=== PATIENT | female | born 1985 | race Caucasian/White ===

== ENCOUNTER → 2016-09-26 | Outpatient (CLI) | payer OTHER ==
[~2016-09-26] MED LIST: LEVOTAB9 PO
[2016-09-26 15:29] LABS: INTERNATIONAL NORMALIZED RATIO 0.9 RATIO
[2016-09-26 15:43] LABS: BICARBONATE 24.9 MEQ/L (21.0-32.0); POTASSIUM 3.9 MEQ/L (3.5-5.1)
[2016-09-26 16:28] LABS: BLOOD, URINE TRACE (NEG); COMMENT (UR) CULT NOT INDICATED; CULTURE IF INDICATED CULT NOT INDICATED; GLUCOSE,URINE NEG (NEG); KETONE, URINE NEG (NEG); MUCUS URINE FEW /lpf (OCC); NITRITE,URINE NEG (NEG); PH, URINE 5.5 (5.0-8.5); SQUAMOUS EPITHELIAL CELL URINE <1 /hpf (0-5); URINE COLOR YELLOW (YELLW/STRAW)
== END ==
LOC: CPRE 14:32
PROVIDERS: ATTEND Orthopaedic Surgery
DX: Z01.812 Encounter for preprocedural laboratory examination (principal); G56.01 Carpal tunnel syndrome, right upper limb
CPT/HCPCS: 36415; 80048; 81001; 85610

== ENCOUNTER → 2016-10-04 | Day surgery (SDC) | payer OTHER ==
--- NOTE | 2016-09-30 11:57 | MH ---
cc: BIANKA GRIFFIN DATE OF ADMISSION: 10/04/2016 ADMITTING DIAGNOSIS Right carpal tunnel syndrome, pain of the right hand. HISTORY OF PRESENT ILLNESS The patient is a 31-year-old white female who has experienced almost a five-month history of bilateral hand pain. Her history actually had extended back at least one year when she began to experience the onset of a numb and tingling sensation involving the index and long finger of both hands. The patient conformed to conservative management at that time, not seeking any evaluation, but gradually experienced what she thought to be a slight trend in improvement and she continued to utilize both upper extremities for her daily routine. In the more recent past her symptoms began to recur, becoming quite pronounced during the night interval which interfered with her sleep and using her hands as she initiated her days activities. She had undergone previous medical evaluation with her primary care physician, Dr. Vlad Mcclure, who ordered x-ray studies, the results of which reported mild degenerative changes about the IP joints. The patient was later encouraged to proceed with orthopedic evaluation for which he was originally evaluated by the undersigned physician in May of this past year. At that time her clinical findings were thought to be consistent with a tenosynovitis of both hands with the possibility of carpal tunnel syndrome being noted. The patient was referred for neurological evaluation with EMG study, the results of which identified moderately severe median neuropathy of the right wrist compatible with carpal tunnel syndrome. Findings of the left upper extremity showed moderately severe median neuropathy at the wrist level as well. The patient remained symptomatic with discomfort in both hands being somewhat more pronounced on the right side extending into the night interval with an associated numb sensation. She returned to the office in follow-up disposition expressing her desire to proceed with a more definitive course of treatment. The involvement of carpal tunnel release was outlined in detail for which the patient indicated her full understanding and expressed her desire to proceed accordingly. In compliance with her wishes she is currently being admitted in order that carpal tunnel release of her right hand be accomplished. She is right-hand dominant. PAST MEDICAL HISTORY No previous hospitalizations or surgeries. The patient denies active medical illnesses. MEDICATIONS Her current medications include Levonor, a control pill taken on a regular basis. ALLERGIES SHE EXPRESSES A DRUG ALLERGY TO SUSIE BACK AND BODY MEDICATION WHICH DID RESULT IN HIVES AND SWELLING SYMPTOMS. SHE REPORTS THAT SHE HAS BEEN ABLE TO TOLERATE ASPIRIN IN LOW DOSES WITHOUT ASSOCIATED DIFFICULTY. REVIEW OF SYSTEMS She does wear glasses. Denies headache, seizure or syncope. Occasional sinus congestion as related to environmental irritants. No epistaxis. Auditory acuity intact. No tinnitus. No bleeding gums or dysphagia. Denies cough, shortness of breath, upper respiratory infection, pneumonia or tuberculosis. No angina or heart disease. Her appetite is good. Bowel movements are regular. No hepatitis, gallbladder disease, ulcers or hemorrhoids. No urinary tract infection. No kidney stones. No history of fracture. No psychiatric illness. Her remaining review of systems is unremarkable and noncontributory. FAMILY HISTORY The patient is single. Father 61 years of age. Mother 63 years of age. The father is status post a pacemaker and defibrillator insertion. The mother has undergone previous knee replacement. There is a family history of hypertension, diabetes, heart disease, thyroid disorder and melanoma. SOCIAL HISTORY The patient is currently working on a master's degree in organizational development. 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 She denies active use of tobacco and ethanol. PHYSICAL EXAMINATION Height 5 feet 3-1/2 inches, weight 307 pounds. GENERAL: An alert, oriented and responsive 31-year-old white female who sits quietly upon the examination table with no obvious distress. HEAD, EYES, EARS, NOSE, AND THROAT: Pupils are equal, round and reactive to light. Extraocular movements full. Sclera clear. External nares clear. External auditory canals clear. Dental intact. Mucous membranes pink and moist. Pharynx clear. NECK: Supple. Active range of motion without significant pain. Carotid pulse palpable bilaterally. Trachea midline. Thyroid without enlargement. LUNGS: Clear to auscultation and percussion. BACK: No CVA tenderness. No discomfort throughout the dorsolumbar spine. HEART: Regular rhythm. No murmur or gallop. ABDOMEN: Soft, nontender. Bowel sounds present. PELVIC: Deferred. EXTREMITIES: Right Hand: No swelling or discoloration or obvious deformity. Intrinsic function is grossly intact with flexion/extension maneuvering. Extract Mixer strength intact. Sensory intact. No appreciable thenar or hypothenar atrophy. Tinel's sign negative. Durkan's sign negative. Phalen's test minimally positive. Radial pulse palpable. Satisfactory mobility of the wrist joint with no associated pain. NEUROLOGIC: Cranial nerves II-XII grossly intact. IMPRESSION 1. Right carpal tunnel syndrome. 2. Pain right hand. PLAN Right carpal tunnel release. The nature of the planned surgical procedure, the potential complications and risks associated, the expectations of surgery and the consent form were thoroughly reviewed with the patient prior to her admission to the hospital. Jessie has indicated her full understanding regarding all of the above and given consent to proceed with treatment as outlined. Bianka Griffin MD NBS/BT /11:22 AM /11:37 AM
[~2016-10-04] VITALS: Ht 160 cm; Wt 139.3 kg
[~2016-10-04] MED LIST changes: +*RESP: ALBUTEROL 2.5 MG/3 ML NEB (PRN) PERIprocedural Use ONLY NEB ONE; +ACETAMINOPHEN 1000 MG/100 ML VIAL IV ONE; +ACETAMINOPHEN/HYDROcodone 325 MG/5 MG TAB ONE; +ACETAMINOPHEN/HYDROcodone 325 MG/5 MG TAB PO PRN; +DEXAMETHASONE SOD PHOS 4 MG/ML VIAL ONE; +DICLOFENAC SODIUM 37.5 MG/ML VIAL IV PUSH ONE; +DO NOT ADM ANY ANTICOAGULANT DRUGS XX PRN; +FAMOTIDINE 20 MG/2 ML VIAL ONE; +INSULIN HUMAN REGULAR 1,000 UNITS/10 ML VIAL SQ PRN; +LACTATED RINGER'S 1000 ML IV SCH; +METOPROLOL TARTRATE 25 MG TAB PO PRN; +MIDAZOLAM HCL 2 MG/2 ML VIAL ONE; +MORPHINE SULFATE 10 MG/ML INJ IM PRN; +ONDANSETRON HCL 4 MG/2 ML VIAL IV PUSH ONE; +POVIDONE IODINE 7.5% SCRUB 118 ML BOTTLE TOP SCH; +PROMETHAZINE INJ 25 MG/ML VIAL IM PRN; +PROPOFOL 200 MG/20 ML AMP IV ONE; +SODIUM CHLORID 0.9% 500 ML IV SCH; +ceFAZolin 2 GM PREMIX 50 ML IV SCH; +ceFAZolin 2 GM PREMIX 50 ML ONE; +fentaNYL CITRATE 250 MCG/5 ML AMP ONE
[2016-10-04 05:55] VITALS: BP 152/77; PULSE 92; RESP 18; TEMP 98.1; O2SAT 98
[2016-10-04 09:45] VITALS: BP 138/72; PULSE 99; RESP 16; TEMP 97.5; O2SAT 95
--- NOTE | 2016-10-05 19:04 | MP ---
cc: BIANKA GRIFFIN DATE OF SURGERY: 10/04/2016. PREOPERATIVE DIAGNOSIS: Right carpal tunnel syndrome. POSTOPERATIVE DIAGNOSIS: Right carpal tunnel syndrome. OPERATIVE PROCEDURE PERFORMED: Right carpal tunnel release. SURGEON: Bianka Griffin MD. ANESTHESIA: General by LMA. DESCRIPTION OF THE PROCEDURE IN DETAIL/FORMAT: Following the induction of satisfactory general anesthesia by LMA insertion as completed per the department of anesthesia, a tourniquet was established around the proximal portion of the right upper extremity. The extremity proper was thus prepped with Betadine solution and draped into a sterile field in the routine manner. Prior to initiation of the actual procedure, the standard time-out protocol was completed. All parameters were appropriately addressed and confirmed by operating room personnel. The extremity was elevated for approximately one minute and the tourniquet thus inflated to 200 mmHg pressure. A sharp skin incision was initiated in the mid palmar region immediately distal to the flexor crease and developed through underlying subcutaneous tissue with hemostasis maintained by electrocautery. By deepening dissection, the transverse carpal ligament was identified. A sharp entry point was initiated proximally for which a mosquito clamp was passed deep to the ligamentous structure but superficial to the underlying nerve. Under direct visualization, the ligament was divided in both a proximal and distal orientation. Blunt probing thereafter proximally and distally confirmed an adequate decompression within the confines of the carpal tunnel space. Examination of the underlying median nerve did identify some localized hyperemic changes that were consistent with carpal tunnel phenomenon. The wound was copiously irrigated with saline solution. Hemostasis was established by electrocautery. Skin margins were reapproximated with interrupted 4-0 nylon suture. Xeroform gauze and a bulky dry sterile hand dressing were applied. The tourniquet was deflated after 13 minutes of tourniquet time. Anesthesia was discontinued and the patient thus transferred to a hospital stretcher and returned to the recovery room in satisfactory condition having tolerated her operative procedure well. Estimated blood loss was less than 5 mL. Bianka Griffin MD [facility]/JCNasima /8:08 AM /6:54 PM
== END | disposition home or self-care (01) ==
LOC: HSDC 05:23 → EDUNIT# 07:30
PROVIDERS: ATTEND Orthopaedic Surgery
DX: G56.01 Carpal tunnel syndrome, right upper limb (principal); M79.641 Pain in right hand; M79.642 Pain in left hand; R06.02 Shortness of breath
CPT/HCPCS: 01810; 64721; 94640; J0131; J0690; J1100; J2250; J2405; J3010; J7120; J7613; J1130

== ENCOUNTER → 2016-12-04 | Outpatient (CLI) | payer OTHER ==
[~2016-12-04] MED LIST changes: -*RESP: ALBUTEROL 2.5 MG/3 ML NEB (PRN) PERIprocedural Use ONLY NEB ONE; -ACETAMINOPHEN 1000 MG/100 ML VIAL IV ONE; -ACETAMINOPHEN/HYDROcodone 325 MG/5 MG TAB ONE; -ACETAMINOPHEN/HYDROcodone 325 MG/5 MG TAB PO PRN; -DEXAMETHASONE SOD PHOS 4 MG/ML VIAL ONE; -DICLOFENAC SODIUM 37.5 MG/ML VIAL IV PUSH ONE; -DO NOT ADM ANY ANTICOAGULANT DRUGS XX PRN; -FAMOTIDINE 20 MG/2 ML VIAL ONE; -INSULIN HUMAN REGULAR 1,000 UNITS/10 ML VIAL SQ PRN; -LACTATED RINGER'S 1000 ML IV SCH; -METOPROLOL TARTRATE 25 MG TAB PO PRN; -MIDAZOLAM HCL 2 MG/2 ML VIAL ONE; -MORPHINE SULFATE 10 MG/ML INJ IM PRN; -ONDANSETRON HCL 4 MG/2 ML VIAL IV PUSH ONE; -POVIDONE IODINE 7.5% SCRUB 118 ML BOTTLE TOP SCH; -PROMETHAZINE INJ 25 MG/ML VIAL IM PRN; -PROPOFOL 200 MG/20 ML AMP IV ONE; -SODIUM CHLORID 0.9% 500 ML IV SCH; -ceFAZolin 2 GM PREMIX 50 ML IV SCH; -ceFAZolin 2 GM PREMIX 50 ML ONE; -fentaNYL CITRATE 250 MCG/5 ML AMP ONE
[2016-12-04 12:12] LABS: INTERNATIONAL NORMALIZED RATIO 0.9 RATIO; PROTHROMBIN TIME - PATIENT 9.9 SEC (9.8-11.6)
[2016-12-04 12:16] LABS: BLOOD, URINE NEG (NEG); COMMENT (UR) CULT NOT INDICATED; CULTURE IF INDICATED CULT NOT INDICATED; GLUCOSE,URINE NEG (NEG); KETONE, URINE NEG (NEG); MUCUS URINE FEW /lpf (OCC); NITRITE,URINE NEG (NEG); PH, URINE 7.5 (5.0-8.5); SQUAMOUS EPITHELIAL CELL URINE 2 /hpf (0-5); URINE COLOR YELLOW (YELLW/STRAW)
[2016-12-04 12:21] LABS: BICARBONATE 26.5 MEQ/L (21.0-32.0); POTASSIUM 4.2 MEQ/L (3.5-5.1)
== END ==
LOC: EDUNIT# 11-21 10:00 → CPRE 09:49
PROVIDERS: ATTEND Orthopaedic Surgery
DX: Z01.812 Encounter for preprocedural laboratory examination (principal); G56.02 Carpal tunnel syndrome, left upper limb
CPT/HCPCS: 36415; 80048; 81001; 85610

== ENCOUNTER → 2016-12-13 | Day surgery (SDC) | payer OTHER ==
--- NOTE | 2016-12-09 10:47 | MH ---
cc: BIANKA GRIFFIN M.D. DATE OF ADMISSION: 12/13/2016 ADMITTING DIAGNOSIS: Left carpal tunnel syndrome. HISTORY OF PRESENT ILLNESS: The patient is a 31-year-old white female who has experienced greater than a six-month history of bilateral hand pain. She reported that her symptoms had actually extended back at least one year when she began to note the onset of a numb and tingling sensation especially involving the index and long finger of both hands. She conformed to conservative management initially not undergoing any form of evaluation or treatment and initially thought that maybe there was some trend of improvement while she continued to utilize both upper extremities for her daily activities. In the more recent past, her symptoms became somewhat more pronounced especially during the night interval which interfered with sleep. She had undergone previous medical evaluation with her primary care physician who initially ordered x-ray studies which reported mild degenerative changes about the IP joints. She was later encouraged to proceed with orthopedic evaluation and was subsequently seen by the undersigned physician in May of this past year. At that time her clinical findings were felt to be consistent with tenosynovitis of both hands but the possibility of carpal tunnel syndrome noted. The patient was later referred for neurology evaluation with EMG study the results of which identified a moderately severe median neuropathy of the right wrist compatible with carpal tunnel syndrome and similar findings involving the left wrist. Because of continued symptoms, the patient was subsequently admitted to the hospital in September of this year and at that time she underwent a right carpal tunnel release. She was noted to have tolerated her operative procedure well and her postoperative course was unremarkable thereafter. She was able to experience a definite trend of improvement throughout the postoperative period. She returned to the office in more recent follow-up indicating that she was continuing to remain symptomatic with a numb and tingling sensation involving her left hand that was interfering with her sleep pattern. Because of the favorable results that she had noted from recent surgery as well as the ongoing symptoms of her left hand, she expressed her desire to proceed with similar treatment at this time in the anticipation that she might be able to experience a similar trend of improvement. In compliance with her wishes, she is currently being admitted in order that left carpal tunnel release be completed. She is right-hand dominant. PAST MEDICAL HISTORY: Her past medical history, hospitalizations and surgeries have been limited to her right carpal tunnel surgery. She has no active medical illnesses. MEDICATIONS: She takes 0.1 mg daily for menstrual regularity. ALLERGIES: SHE NOTES A DRUG ALLERGY TO SUSIE BACK AND BODY MEDICATION WHICH DID RESULT IN A HIVES AND SWELLING TYPE REACTION. SHE HAS BEEN ABLE TO TOLERATE ASPIRIN IN LOW DOSES WITHOUT ANY ASSOCIATED DIFFICULTY. REVIEW OF SYSTEMS: She does wear glasses. No headache, seizure or syncope. Occasional sinus congestion. No epistaxis. Auditory acuity intact. No tinnitus. No bleeding gums or dysphagia. No cough, shortness of breath, upper respiratory infection, pneumonia or tuberculosis. No angina or heart disease. Appetite good. Bowel movements regular. No hepatitis, gallbladder disease, ulcers or hemorrhoids. No urinary tract infection. No kidney stones. No previous fractures. No psychiatric illness. Remaining review of systems is unremarkable and noncontributory. FAMILY HISTORY: The patient is single. Her father is 61 years of age. Mother 63 years of age. Father is status post pacemaker and defibrillator insertion. Her mother has undergone previous knee replacement. Family history is positive for hypertension, diabetes, heart disease, thyroid disorder and melanoma. SOCIAL HISTORY: The patient is currently working towards a master's degree in organizational development. 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 She denies active use of tobacco and ethanol. PHYSICAL EXAMINATION: HEIGHT: 5 feet 3-1/2 inches. WEIGHT: 307 pounds. GENERAL: An alert, oriented responsive 31-year-old white female who sits quietly upon examination table with no apparent distress. HEAD, EYES, EARS, NOSE, THROAT: Pupils are equally round and reactive to light. Extraocular movements full. Sclerae clear. External nares clear. External auditory canals clear. Dental intact. Mucous membranes pink and moist. Pharynx clear. NECK: Supple. Active range of motion without appreciable pain. Carotid pulse bilaterally. Trachea midline. Thyroid without enlargement. LUNGS: Clear to auscultation and percussion. No CVA tenderness. No discomfort throughout the dorsal or lumbar spine. HEART: Regular rhythm. No murmur or gallop. ABDOMEN: Soft, nontender. Bowel sounds present. PELVIC: Deferred. EXTREMITIES: Left hand - No obvious swelling or discoloration. Intrinsic function is grossly intact with flexion/extension maneuvering. Distal sensory grossly intact. No apparent thenar or hypothenar atrophy. Radial pulse palpable. Tinel's sign negative. Cris's test negative. Phalen's test negative. 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 Full mobility about the wrist joint. Intrinsic function of the hand is otherwise grossly intact. NEUROLOGIC: Cranial nerves II-XII grossly intact. IMPRESSION: 1. Left carpal tunnel syndrome. 2. Pain left hand. PLAN: Left carpal tunnel release. Once again, the nature of the planned surgical procedure, the potential complications and risks associated, the expectations of surgery and the consent form were thoroughly reviewed with the patient prior to admission to the hospital. Jessie has indicated her full understanding regarding all of the above and given her consent to proceed with treatment as outlined. Medical evaluation and clearance for surgery completed by her primary care physician, Dr. Vlad Mcclure. Bianka Griffin MD NBS/JCC /5:37 PM /10:46 AM
[~2016-12-13] VITALS: Ht 162.6 cm; Wt 142.5 kg
[~2016-12-13] MED LIST changes: +*morphine SULFATE 8 MG/ML PERIprocedure ONLY ONE; +ACETAMINOPHEN 1000 MG/100 ML VIAL IV ONE; +ACETAMINOPHEN/HYDROcodone 325 MG/5 MG TAB PO PRN; +DEXAMETHASONE SOD PHOS 4 MG/ML VIAL ONE; +DO NOT ADM ANY ANTICOAGULANT DRUGS XX PRN; +INSULIN HUMAN REGULAR 1,000 UNITS/10 ML VIAL SQ PRN; +LACTATED RINGER'S 1000 ML IV SCH; +METOPROLOL TARTRATE 25 MG TAB PO PRN; +MIDAZOLAM HCL 2 MG/2 ML VIAL ONE; +MORPHINE SULFATE 10 MG/ML INJ IM PRN; +ONDANSETRON HCL 4 MG/2 ML VIAL ONE; +PHENYLEPH/NS 1000 MCG/10 ML SYR IV ONE; +POVIDONE IODINE 7.5% SCRUB 118 ML BOTTLE TOP SCH; +PROPOFOL 200 MG/20 ML AMP IV ONE; +SODIUM CHLORID 0.9% 500 ML IV SCH; +SUGAMMADEX SODIUM 200 MG/2 ML VIAL IV PUSH ONE; +ceFAZolin 2 GM PREMIX 50 ML IV SCH; +ceFAZolin 2 GM PREMIX 50 ML ONE; +fentaNYL CITRATE 250 MCG/5 ML AMP ONE
[2016-12-13 05:56] VITALS: BP 128/85; PULSE 90; RESP 18; TEMP 98.4; O2SAT 97
[2016-12-13 09:20] VITALS: BP 124/92; PULSE 81; RESP 18; TEMP 97.7; O2SAT 96
--- NOTE | 2016-12-17 08:57 | MP ---
cc: BIANKA GRIFFIN DATE OF SURGERY 12/13/2016 PREOPERATIVE DIAGNOSIS Left carpal tunnel syndrome. POSTOPERATIVE DIAGNOSIS Left carpal tunnel syndrome. PROCEDURE Left carpal tunnel release. SURGEON Bianka Griffin MD ANESTHESIA General by LMA FORMAT Following the induction of satisfactory general anesthesia by LMA insertion as completed per the department of anesthesia, a tourniquet was established around the proximal portion of the left upper extremity. The extremity proper was isolated with a U-drape thereafter being prepped with Betadine solution and draped into a sterile field in the routine manner. Prior to initiation of the actual procedure, the standard time-out protocol was completed. All parameters were appropriately addressed and confirmed by operating room personnel. The extremity was elevated for approximately one minute and the tourniquet thus inflated to 200 mmHg pressure. A sharp skin incision was initiated midline in the mid palmar region immediately distal to the flexor crease of the wrist and developed through underlying subcutaneous tissue with hemostasis maintained by electrocautery. By deepening dissection utilizing loupe magnification, the transverse carpal ligament was identified, a sharp entry point was initiated proximally. A mosquito clamp passed deep to the ligamentous structure, but superficial to the underlying nerve and under direct visualization the ligament was divided in a proximal and distal orientation. Blunt probing thereafter confirmed an adequate decompression within the confines of the carpal tunnel. Examination of the underlying median nerve did reveal some mild compressive deformity consistent with a carpal tunnel syndrome. The wound was copiously irrigated with saline solution. Hemostasis maintained by electrocautery. Skin margins were thereafter reapproximated with interrupted 0-nylon suture. Xeroform gauze and a bulky dry sterile dressing applied. Tourniquet deflated after 10 minutes of tourniquet time. Anesthesia discontinued and the patient thus transferred to a hospital stretcher and returned to the recovery room in satisfactory condition having tolerated her operative procedure well. Estimated blood loss was negligible. MD CAMRYN Cevallos/KELLY /8:10 AM /8:45 AM
== END | disposition home or self-care (01) ==
LOC: EDUNIT# 11-29 07:30 → HSDC 05:06
PROVIDERS: ATTEND Orthopaedic Surgery
DX: G56.02 Carpal tunnel syndrome, left upper limb (principal)
CPT/HCPCS: 01810; 64721; J0131; J1100; J2250; J2270; J2370; J2405; J3010; J7120; J0690